=== PATIENT | female | born 1990 | race Native Hawaiian/Other Pacific Islander ===

== ENCOUNTER 2016-08-30 00:57 | Emergency (ER) | payer OTHER ==
[~2016-08-30] VITALS: Ht 160 cm; Wt 56.2 kg
[~2016-08-30 00:57] MED LIST: ALPR0.5T24 PO; CETI10TA PO; ZANTAC300 MG PO
[2016-08-30 01:46] LABS: PLATELET COUNT 244 K/uL (152-353)
[2016-08-30 01:55] LABS: POTASSIUM 3.8 mmol/L (3.6-5.2); SODIUM 135 mmol/L (136-145)
[2016-08-30 02:48] VITALS: BP 120/79; TEMP 98.4
== END 2016-08-30 02:48 | disposition home or self-care (01) ==
LOC: ED 00:57
DX: R10.11 Right upper quadrant pain (principal); N20.0 Calculus of kidney; D35.00 Benign neoplasm of unspecified adrenal gland
CPT/HCPCS: 36415; 80053; 80307; 81000; 85027; 96361; 96374; 96375; 99284; G0479; J1885; J2405